=== PATIENT | male | born 1995 | race African-American/Black ===

== ENCOUNTER 2019-07-27 19:21 | Emergency (ER) | payer SELFPAY ==
[~2019-07-27] VITALS: Ht 180.3 cm; Wt 71.0 kg
[2019-07-27 19:26] VITALS: BP 145/78; PULSE 71; RESP 16; Ht 180.3 cm; Wt 71.0 kg
== END 2019-07-27 21:18 | disposition left against medical advice (07) ==
LOC: FTE 19:21
DX: Z53.21 Procedure and treatment not carried out due to patient leaving prior to being seen by health care provider (principal)